=== PATIENT | female | born 1950 | race Caucasian/White ===

== ENCOUNTER 2023-09-15 13:45 | Emergency (ER) | payer MEDICARE, BC ==
[~2023-09-15] VITALS: Ht 172.7 cm; Wt 69.9 kg
[~2023-09-15 13:45] MED LIST: AMLODIPINE BESY10 MG PO; APRISO0.375 GM PO; ASPIRIN81 MG PO; AZELASTINE; CARBAMAZEPINE200 MG PO; HUMIRA40 MG/0.1 INJ; HYDRALAZINE HCL50 MG PO; LASIX20 MG PO; LEVOTHYROXINE50 MCG PO; LYRICA50 MG PO; METOPROLOL SUCC50 MG PO; PANTOPRAZOLE SO40 MG PO; PRAVACHOL20 MG PO; PREDNISONE10 MG PO; PROVENTIL HFA6.7 GM INH; SERTRALINE HCL100 MG PO; SYMBICORT 16010.2 GM INH; ULTRAM50 MG PO; URSODIOL300 MG PO; ZESTRIL40 MG PO
[2023-09-15] MEDS: TETANUS/DIPHTHERIA TOX ADULT 0.5 ML SYR IM ONE (17:19)
[2023-09-15] MEDS: ACETAMINOPHEN 325 MG TAB PO ONE (17:20)
[2023-09-15] MEDS: TRAMADOL HCL 50 MG TAB PO ONE (18:40)
[2023-09-15 19:46] VITALS: BP 175/62; PULSE 71; RESP 18; TEMP 98.3; O2SAT 100
== END 2023-09-15 19:35 | disposition other institution (70) ==
LOC: ER 13:56
DX: S61.511A Laceration without foreign body of right wrist, initial encounter (principal); R22.0 Localized swelling, mass and lump, head; G93.9 Disorder of brain, unspecified; W01.0XXA Fall on same level from slipping, tripping and stumbling without subsequent striking against object, initial encounter; Y93.01 Activity, walking, marching and hiking; Y92.89 Other specified places as the place of occurrence of the external cause; J44.9 Chronic obstructive pulmonary disease, unspecified; I50.9 Heart failure, unspecified; K76.9 Liver disease, unspecified; M81.0 Age-related osteoporosis without current pathological fracture; Z87.19 Personal history of other diseases of the digestive system
CPT/HCPCS: 70450; 70486; 72125; 72192; 90471; 90714; 99284